=== PATIENT | female | born 1975 | race Two or more races ===

== ENCOUNTER 2022-02-03 14:06 | Emergency (ER) | payer OTHER ==
[~2022-02-03] VITALS: Ht 154.9 cm; Wt 79.4 kg
[2022-02-03 14:18] VITALS: BP_SYST 134
--- NOTE | 2022-02-03 14:33 | NUR ---
Urine specimen collected and analyzed in ER. Results given to ER .
--- NOTE | 2022-02-03 14:33 | NUR ---
Patient to ER bed 7 to gown for evaluation. Side rails up. Report given to Juliette ARAUJO..
--- NOTE | 2022-02-03 14:33 | NUR ---
Pt reports Chest pain since 2199 last night unprovoked.
--- NOTE | 2022-02-03 14:45 | NUR ---
ER at bedside examining patient.
[2022-02-03 15:34] LABS: BASOPHILS # (AUTO) 0.1 K/uL (0.0-0.2); BASOPHILS % (AUTO) 0.4 % (0.0-2.0); EOSINOPHILS % (AUTO) 0.2 % (0.0-4.0); HEMATOCRIT 38.8 % (36-48); LYMPHOCYTES # (AUTO) 1.6 K/uL (1.0-5.5); MEAN CORPUSCULAR VOLUME 86 fL (79.0-98.0); MONOCYTES # (AUTO) 0.8 K/uL (0.0-1.0); MONOCYTES % (AUTO) 5.2 % (1.7-9.3); NEUTROPHILS # (AUTO) 13.4 K/uL (1.8-7.7); NEUTROPHILS % (AUTO) 84.2 % (40.0-70.0); PLATELET COUNT (AUTO) 407 K/uL (130-430); RED BLOOD CELL COUNT(AUTO) 4.52 MIL/uL (4.2-6.2); RED CELL DISTRIBUTION WIDTH 12.9 % (9.0-15.0); WHITE BLOOD COUNT (AUTO) 15.9 K/uL (4.8-10.8)
[2022-02-03 15:45] LABS: ANION GAP 8 (5-15); CALCIUM 9.1 mg/dL (8.4-11.0); CHLORIDE 100 mmol/L (98-107); CREATININE 0.75 mg/dL (0.55-1.30); GLUCOSE 120 mg/dL (70-99); POTASSIUM 3.7 mmol/L (3.5-5.1); UREA NITROGEN, BLOOD 11 mg/dL (8-21)
[2022-02-03 15:46] LABS: GFR AFRICAN AMERICAN 106 mL/min (>90)
[2022-02-03 15:54] LABS: ALANINE AMINOTRANSFERASE 55 U/L (12-78); ALBUMIN 3.9 g/dL (3.4-4.8); AMYLASE 39 U/L (0-100); ASPARTATE AMINOTRANSFERASE 23 U/L (10-37); LIPASE 75 U/L (73-393); TOTAL BILIRUBIN 0.5 mg/dL (0.0-1.0)
[2022-02-03] MEDS ORDERED: KETOROLAC TROMETHAMINE 60 MG/2 ML VIAL IM ONE (16:00)
[2022-02-03] MEDS ORDERED: ONDANSETRON 4 MG ODT TAB PO ONE (16:00)
[2022-02-03] MEDS ORDERED: IBUP-1969 PO (16:44)
[2022-02-03] MEDS ORDERED: ONDA-8 TL (16:44)
[2022-02-03] MEDS ORDERED: HYDR-3917 PO (16:44)
--- NOTE | 2022-02-03 17:40 | NUR ---
Patient given written and verbal discharge instructions and verbalizes understanding. ER MD discussed with patient the results and treatment provided. Patient in stable condition. ID arm band removed. IV catheter removed intact and dressing applied, no active bleeding. Rx of Zofran, Blakeslee and Ibuprofen given. Patient educated on pain management and to follow up with PMD. Opportunity for questions provided and answered. Medication side effect fact sheet provided.
[2022-02-03 17:41] VITALS: BP_SYST 134
== END 2022-02-03 17:40 | disposition home or self-care (01) ==
LOC: SED 14:06
DX: K80.20 Calculus of gallbladder without cholecystitis without obstruction (principal); Z79.899 Other long term (current) drug therapy
CPT/HCPCS: 99285; 76700; 71045; 80053; 82150; 83690; 85025; 84484; 36415; 93005; 81025; 96372; Q0162; J1885

== ENCOUNTER 2022-02-12 12:13 | Inpatient (IN) | payer OTHER ==
[~2022-02-12] VITALS: Ht 157.5 cm; Wt 76.7 kg
[~2022-02-12 12:13] MED LIST: HYDR-3917 PO; IBUP-1969 PO; ONDA-8 TL
[2022-02-12 12:37] VITALS: BP_SYST 154
[2022-02-12] MEDS ORDERED: MORPHINE 4 MG INJ. 4 MG/ML VIAL IVP ONE ×3 (13:30→14:30)
[2022-02-12] MEDS ORDERED: KETOROLAC TROMETHAMINE 30 MG VIAL IVP ONE ×2 (13:30→15:00)
[2022-02-12] MEDS ORDERED: NACL 0.9% 1,000 ML IV ONE ×2 (13:30→14:30)
[2022-02-12] MEDS ORDERED: ONDANSETRON HCL 4 MG/2 ML VIAL IVP ONE ×3 (13:30→14:30)
[2022-02-12 13:32] LABS: BASOPHILS % (AUTO) 0.9 % (0.0-2.0); EOSINOPHILS # (AUTO) 0.1 K/uL (0.0-0.4); HEMATOCRIT 33.8 % (36-48); HEMOGLOBIN 11.5 g/dL (12.0-16.0); LYMPHOCYTES # (AUTO) 0.9 K/uL (1.0-5.5); LYMPHOCYTES % (AUTO) 23.1 % (20.5-51.5); MEAN CORPUSCULAR HEMOGLOBIN 29 pg (27-31); MEAN CORPUSCULAR HGB CONC 34 % (32-36); MEAN CORPUSCULAR VOLUME 84 fL (79.0-98.0); MONOCYTES % (AUTO) 1.1 % (1.7-9.3); NEUTROPHILS % (AUTO) 72.9 % (40.0-70.0); PLATELET COUNT (AUTO) 332 K/uL (130-430); RED CELL DISTRIBUTION WIDTH 12.8 % (9.0-15.0); WHITE BLOOD COUNT (AUTO) 4.1 K/uL (4.8-10.8)
[2022-02-12] MEDS: KETOROLAC TROMETHAMINE 60 MG/2 ML VIAL IM ONE ×2 (13:49→14:13)
[2022-02-12 14:12] LABS: CALCIUM 8.8 mg/dL (8.4-11.0); CREATININE 0.97 mg/dL (0.55-1.30); POTASSIUM 3.8 mmol/L (3.5-5.1)
[2022-02-12 14:24] LABS: ALBUMIN 3.2 g/dL (3.4-4.8); TOTAL BILIRUBIN 0.3 mg/dL (0.0-1.0)
[2022-02-12] MEDS ORDERED: PIPERACILLIN/TAZO 3.375 GM in NS 50 ML IV ONE (15:15)
[2022-02-12] MEDS ORDERED: LORazepam 2 MG/ML VIAL IVP PRN (15:30)
[2022-02-12] MEDS ORDERED: D5NS 1,000 ML IV ONE (15:30)
[2022-02-12] MEDS ORDERED: MAGNESIUM SULFATE 50 ML IV PRN (15:30)
[2022-02-12] MEDS ORDERED: MUPIROCIN 2% TOPICAL OINTMENT 22 GM NS PRN (15:30)
[2022-02-12] MEDS ORDERED: POTASSIUM CHLORIDE 20 MEQ TAB.PRT.SR PO PRN (15:30)
[2022-02-12] MEDS ORDERED: ZOLPIDEM TARTRATE 5 MG TABLET PO PRN (15:30)
[2022-02-12] MEDS ORDERED: DOCUSATE SODIUM 100 MG CAPSULE PO PRN (15:30)
[2022-02-12] MEDS ORDERED: ACETAMINOPHEN 325 MG TABLET PO PRN ×2 (15:30→16:45)
[2022-02-12] MEDS ORDERED: PIPERACILLIN/TAZOBACTAM 3.375 GM/VIAL (ZOSYN) IV ONE (15:58)
[2022-02-12 16:18] LABS: BILIRUBIN,URINE NEGATIVE (NEGATIVE); BLOOD, URINE 1+ (NEGATIVE); CLARITY/URINE CLEAR (CLEAR); COLOR,URINE YELLOW (YELLOW); GLUCOSE,URINE NEGATIVE (NEGATIVE); KETONES,URINE 1+ (NEGATIVE); LEUKOCYTE ESTERASE ,URINE NEGATIVE (NEGATIVE); NITRITE, URINE NEGATIVE (NEGATIVE); PROTEIN URINE NEGATIVE (NEGATIVE); UROBILINOGEN,URINE 0.2 (0.2-1.0)
[2022-02-12 16:36] LABS: BACTERIA,URINE None Seen /HPF (None Seen); MUCUS,URINE 1+ /LPF (None Seen); RBC,URINE 0-3 /HPF (0-3); WBC,URINE NONE SEEN /HPF (0-3)
[2022-02-12 19:00] VITALS: BP_SYST 163
[2022-02-12 20:00] VITALS: BP_SYST 159
[2022-02-12] MEDS: MORPHINE 2 MG/ML INJ. SYRINGE IVP PRN ×2 (20:25→23:21)
[2022-02-12] MEDS: ONDANSETRON HCL 4 MG/2 ML VIAL IVP PRN (20:55)
[2022-02-13] VITALS: BP_SYST 152
[2022-02-13] MEDS: MORPHINE 2 MG/ML INJ. SYRINGE IVP PRN ×5 (03:46→20:27)
[2022-02-13] MEDS: ONDANSETRON HCL 4 MG/2 ML VIAL IVP PRN ×2 (04:42→18:30)
[2022-02-13 06:40] LABS: BASOPHILS % (AUTO) 0.6 % (0.0-2.0); EOSINOPHILS # (AUTO) 0.2 K/uL (0.0-0.4); EOSINOPHILS % (AUTO) 3.6 % (0.0-4.0); HEMATOCRIT 31.6 % (36-48); HEMOGLOBIN 10.9 g/dL (12.0-16.0); LYMPHOCYTES % (AUTO) 21.8 % (20.5-51.5); MEAN CORPUSCULAR HEMOGLOBIN 29 pg (27-31); MEAN CORPUSCULAR HGB CONC 35 % (32-36); MEAN CORPUSCULAR VOLUME 84 fL (79.0-98.0); MONOCYTES # (AUTO) 0.2 K/uL (0.0-1.0); MONOCYTES % (AUTO) 4.2 % (1.7-9.3); NEUTROPHILS # (AUTO) 3.2 K/uL (1.8-7.7); NEUTROPHILS % (AUTO) 69.8 % (40.0-70.0); PLATELET COUNT (AUTO) 264 K/uL (130-430); RED BLOOD CELL COUNT(AUTO) 3.77 MIL/uL (4.2-6.2); RED CELL DISTRIBUTION WIDTH 12.8 % (9.0-15.0); WHITE BLOOD COUNT (AUTO) 4.6 K/uL (4.8-10.8)
[2022-02-13] MEDS ORDERED: METOPROLOL TARTRATE 5 MG/5 ML VIAL IVP PRN (07:15)
[2022-02-13 08:05] LABS: CALCIUM 7.8 mg/dL (8.4-11.0); CREATININE 0.84 mg/dL (0.55-1.30); POTASSIUM 3.8 mmol/L (3.5-5.1)
[2022-02-13 08:30] VITALS: BP_SYST 163
[2022-02-13] MEDS: PIPERACILLIN/TAZO 3.375/DEX-IS 50 ML IV SCH ×4 (08:36→23:41)
[2022-02-13] MEDS: D5NS 1,000 ML IV SCH ×2 (08:36→17:15)
[2022-02-13 10:00] VITALS: BP_SYST 148
[2022-02-13 12:47] VITALS: BP_SYST 160
[2022-02-13 18:15] VITALS: BP_SYST 146
[2022-02-13 20:00] VITALS: BP_SYST 147
[2022-02-14 01:00] VITALS: BP_SYST 155
[2022-02-14] MEDS: D5NS 1,000 ML IV SCH (03:15)
[2022-02-14] MEDS: PIPERACILLIN/TAZO 3.375/DEX-IS 50 ML IV SCH ×3 (05:13→18:56)
[2022-02-14 07:09] LABS: BASOPHILS # (AUTO) 0.1 K/uL (0.0-0.2); BASOPHILS % (AUTO) 0.9 % (0.0-2.0); EOSINOPHILS # (AUTO) 0.1 K/uL (0.0-0.4); EOSINOPHILS % (AUTO) 2.1 % (0.0-4.0); HEMATOCRIT 33.2 % (36-48); HEMOGLOBIN 11.2 g/dL (12.0-16.0); LYMPHOCYTES # (AUTO) 1.4 K/uL (1.0-5.5); LYMPHOCYTES % (AUTO) 24.8 % (20.5-51.5); MEAN CORPUSCULAR HEMOGLOBIN 28 pg (27-31); MEAN CORPUSCULAR HGB CONC 34 % (32-36); MEAN CORPUSCULAR VOLUME 84 fL (79.0-98.0); MONOCYTES # (AUTO) 0.4 K/uL (0.0-1.0); MONOCYTES % (AUTO) 7.8 % (1.7-9.3); NEUTROPHILS # (AUTO) 3.7 K/uL (1.8-7.7); NEUTROPHILS % (AUTO) 64.4 % (40.0-70.0); PLATELET COUNT (AUTO) 290 K/uL (130-430); RED BLOOD CELL COUNT(AUTO) 3.94 MIL/uL (4.2-6.2); RED CELL DISTRIBUTION WIDTH 13.3 % (9.0-15.0); WHITE BLOOD COUNT (AUTO) 5.7 K/uL (4.8-10.8)
[2022-02-14 07:42] VITALS: BP_SYST 155
[2022-02-14 08:42] LABS: CALCIUM 8.8 mg/dL (8.4-11.0); CREATININE 0.92 mg/dL (0.55-1.30); POTASSIUM 3.6 mmol/L (3.5-5.1)
[2022-02-14] MEDS ORDERED: SEVOFLURANE 15 MIN GAS INH ONE (09:55)
[2022-02-14] MEDS ORDERED: BUPIVACAINE /EPINEPHRINE/PF 0.25% 30 ML VIAL INJ ONE (09:55)
[2022-02-14] MEDS ORDERED: NS IRRIG SOLN 1000 ML IR ONE (09:55)
[2022-02-14] MEDS ORDERED: ROCURONIUM BROMIDE 10 MG/ML (ZEMURON) IV ONE (09:55)
[2022-02-14] MEDS ORDERED: ONDANSETRON HCL 4 MG/2 ML VIAL IVP ONE (09:55)
[2022-02-14] MEDS ORDERED: KETOROLAC TROMETHAMINE 30 MG VIAL IVP ONE (09:55)
[2022-02-14] MEDS ORDERED: NS 1000 ML IV.SOLN IV ONE (09:55)
[2022-02-14] MEDS ORDERED: PIPERACILLIN/TAZOBACTAM 3.375 GM/VIAL (ZOSYN) IV ONE (09:55)
[2022-02-14] MEDS ORDERED: PROPOFOL 200MG/ 20ML VIAL (DIPRIVAN) IV ONE (09:55)
[2022-02-14] MEDS ORDERED: NALOXONE HCL 0.4 MG/ML AMP (NARCAN) IVP PRN (12:00)
[2022-02-14] MEDS ORDERED: ACETAMINOPHEN 325 MG TABLET PO PRN (12:00)
[2022-02-14] MEDS ORDERED: ONDANSETRON HCL 4 MG/2 ML VIAL IVP PRN ×2 (12:00→12:15)
[2022-02-14] MEDS: HYDROmorphone 1 MG/ML INJ. CARTRIDGE IVP PRN ×5 (12:15→18:55)
[2022-02-14] MEDS ORDERED: LABETALOL 100 MG/ 20ML VIAL IVP PRN (12:15)
[2022-02-14] MEDS ORDERED: KETOROLAC TROMETHAMINE 30 MG VIAL IVP PRN (12:15)
[2022-02-14] MEDS ORDERED: LR 1,000 ML IV SCH (12:15)
[2022-02-14] MEDS ORDERED: HYDROmorphone 1 MG/ML INJ. CARTRIDGE ONE ×2 (12:16→13:10)
[2022-02-14] MEDS ORDERED: ONDANSETRON HCL 4 MG/2 ML VIAL ONE (12:35)
[2022-02-14] MEDS ORDERED: HYDR-3917 PO (13:26)
[2022-02-14 13:45] VITALS: BP_SYST 153
[2022-02-14] MEDS: CEFAZOLIN 1 GM IVPB PREMIX 50 ML IV SCH ×2 (14:15→22:21)
[2022-02-14] MEDS: D5/0.45 NS 1,000 ML IV SCH (14:30)
[2022-02-14 17:17] VITALS: BP_SYST 150
[2022-02-14] MEDS: ONDANSETRON HCL 4 MG/2 ML VIAL IVP PRN (19:02)
[2022-02-14 20:00] VITALS: BP_SYST 143
[2022-02-14] MEDS ORDERED: PROMETHAZINE INJ.Non-Formulary 25 MG/ML AMP IVP PRN ×2 (22:15)
[2022-02-14] MEDS: METOCLOPRAMIDE HCL 10 MG/2 ML VIAL IVP PRN (22:25)
[2022-02-15 00:30] VITALS: BP_SYST 133
[2022-02-15] MEDS: MORPHINE 2 MG/ML INJ. SYRINGE IVP PRN ×3 (00:30→21:32)
[2022-02-15] MEDS: D5/0.45 NS 1,000 ML IV SCH ×3 (00:33→17:48)
[2022-02-15] MEDS: PIPERACILLIN/TAZO 3.375/DEX-IS 50 ML IV SCH ×5 (00:33→23:20)
[2022-02-15] MEDS: HYDROcodone/ACETAMIN 5-325 MG TAB (NORCO/ VICODIN) PO PRN (06:34)
[2022-02-15 07:23] LABS: BASOPHILS % (AUTO) 0.3 % (0.0-2.0); EOSINOPHILS # (AUTO) 0.1 K/uL (0.0-0.4); HEMATOCRIT 33.7 % (36-48); HEMOGLOBIN 11.4 g/dL (12.0-16.0); LYMPHOCYTES # (AUTO) 1.6 K/uL (1.0-5.5); LYMPHOCYTES % (AUTO) 21.4 % (20.5-51.5); MEAN CORPUSCULAR HEMOGLOBIN 29 pg (27-31); MEAN CORPUSCULAR HGB CONC 34 % (32-36); MEAN CORPUSCULAR VOLUME 85 fL (79.0-98.0); MONOCYTES # (AUTO) 0.5 K/uL (0.0-1.0); MONOCYTES % (AUTO) 6.4 % (1.7-9.3); NEUTROPHILS # (AUTO) 5.3 K/uL (1.8-7.7); NEUTROPHILS % (AUTO) 70.9 % (40.0-70.0); PLATELET COUNT (AUTO) 307 K/uL (130-430); RED BLOOD CELL COUNT(AUTO) 3.98 MIL/uL (4.2-6.2); RED CELL DISTRIBUTION WIDTH 13.2 % (9.0-15.0); WHITE BLOOD COUNT (AUTO) 7.4 K/uL (4.8-10.8)
[2022-02-15 07:51] VITALS: BP_SYST 149
[2022-02-15] MEDS: METOCLOPRAMIDE HCL 10 MG/2 ML VIAL IVP PRN (07:56)
[2022-02-15 08:32] LABS: CALCIUM 8.3 mg/dL (8.4-11.0); CREATININE 0.81 mg/dL (0.55-1.30); POTASSIUM 3.4 mmol/L (3.5-5.1)
[2022-02-15 12:40] VITALS: BP_SYST 138
[2022-02-15 16:43] VITALS: BP_SYST 148
[2022-02-15 17:05] VITALS: BP_SYST 159
[2022-02-15 19:30] VITALS: BP_SYST 140
[2022-02-15] MEDS: ONDANSETRON HCL 4 MG/2 ML VIAL IVP PRN (21:30)
[2022-02-15 23:02] LABS: POTASSIUM 3.6 mmol/L (3.5-5.1)
[2022-02-15 23:03] LABS: CREATININE 0.9 mg/dL (0.55-1.30); TOTAL BILIRUBIN 0.2 mg/dL (0.0-1.0)
[2022-02-15 23:04] LABS: ALBUMIN 3.2 g/dL (3.4-4.8)
[2022-02-16] VITALS: BP_SYST 150
[2022-02-16] MEDS: HYDROcodone/ACETAMIN 5-325 MG TAB (NORCO/ VICODIN) PO PRN ×3 (01:28→11:29)
[2022-02-16] MEDS: D5/0.45 NS 1,000 ML IV SCH (04:00)
[2022-02-16] MEDS: METOCLOPRAMIDE HCL 10 MG/2 ML VIAL IVP PRN (06:34)
[2022-02-16] MEDS: PIPERACILLIN/TAZO 3.375/DEX-IS 50 ML IV SCH ×2 (06:34→12:25)
[2022-02-16 07:30] LABS: BASOPHILS # (AUTO) 0.1 K/uL (0.0-0.2); BASOPHILS % (AUTO) 0.5 % (0.0-2.0); EOSINOPHILS # (AUTO) 0.2 K/uL (0.0-0.4); HEMATOCRIT 33.7 % (36-48); HEMOGLOBIN 11.6 g/dL (12.0-16.0); LYMPHOCYTES # (AUTO) 2.6 K/uL (1.0-5.5); LYMPHOCYTES % (AUTO) 27.6 % (20.5-51.5); MEAN CORPUSCULAR HEMOGLOBIN 29 pg (27-31); MEAN CORPUSCULAR HGB CONC 34 % (32-36); MEAN CORPUSCULAR VOLUME 84 fL (79.0-98.0); MONOCYTES # (AUTO) 0.7 K/uL (0.0-1.0); MONOCYTES % (AUTO) 6.9 % (1.7-9.3); NEUTROPHILS # (AUTO) 5.9 K/uL (1.8-7.7); PLATELET COUNT (AUTO) 363 K/uL (130-430); RED BLOOD CELL COUNT(AUTO) 3.99 MIL/uL (4.2-6.2); RED CELL DISTRIBUTION WIDTH 12.7 % (9.0-15.0); WHITE BLOOD COUNT (AUTO) 9.4 K/uL (4.8-10.8)
[2022-02-16 08:00] VITALS: BP_SYST 151
[2022-02-16] MEDS: ONDANSETRON HCL 4 MG/2 ML VIAL IVP PRN (12:30)
[2022-02-16 12:59] LABS: CREATININE 0.8 mg/dL (0.55-1.30); POTASSIUM 3.8 mmol/L (3.5-5.1)
== END 2022-02-16 14:15 | disposition home or self-care (01) | DRG 418 ==
LOC: SED 12:13 → SMU 15:21 → STU 02-13 08:27 → SMU 02-15 15:50
PROVIDERS: ADMIT General Practice; ATTEND General Practice
PROC: 3E1M38Z Irrigation of Peritoneal Cavity using Irrigating Substance, Percutaneous Approach (ICD-10-PCS; 2022-02-14)
PROC: 0F943ZZ Drainage of Gallbladder, Percutaneous Approach (ICD-10-PCS; 2022-02-14)
PROC: 0FT44ZZ Resection of Gallbladder, Percutaneous Endoscopic Approach (ICD-10-PCS; principal; 2022-02-14 09:55)
DX: K80.12 Calculus of gallbladder with acute and chronic cholecystitis without obstruction (principal); E44.1 Mild protein-calorie malnutrition; R74.01 Elevation of levels of liver transaminase levels; Z20.822 Contact with and (suspected) exposure to COVID-19; E66.9 Obesity, unspecified; Z68.30 Body mass index [BMI] 30.0-30.9, adult
CPT/HCPCS: 36415; 74181; 76705; 80048; 80053; 81000; 82962; 83036; 83605; 83690; 83735; 84702; 85025; 87040; 87070-TC; 87075-TC; 87081; 87205-TC; 88304; 94010; 96365; 96375; 96376; 99285; C1727; G0378; J0690; J1170; J1885; J2060; J2270; J2405; J2543; J2704; J2765; J3490; J7030